=== PATIENT | female | born 1950 | race Caucasian/White ===

== ENCOUNTER 2023-02-23 05:28 | Emergency (ER) | payer MEDICARE, BC ==
[~2023-02-23] VITALS: Ht 167.6 cm; Wt 108.9 kg
[2023-02-23 06:07] LABS: BASOPHILS % (AUTO) 0.3 % (0.0-2.0); EOSINOPHILS # (AUTO) 0.3 K/uL (0.0-0.7); EOSINOPHILS % (AUTO) 3.7 % (0.0-6.0); HEMATOCRIT 41 % (33-45); HEMOGLOBIN 13.5 g/dL (11.5-14.8); LYMPHOCYTES # (AUTO) 1.8 K/uL (0.8-4.8); LYMPHOCYTES % (AUTO) 24.8 % (20.0-44.0); MEAN CORPUSCULAR HEMOGLOBIN 31 PG (26.0-33.0); MEAN CORPUSCULAR HGB CONC 33 g/dl (31.0-36.0); MEAN CORPUSCULAR VOLUME 92 fL (82-100); MONOCYTES # (AUTO) 0.5 K/uL (0.1-1.30); NEUTROPHILS # (AUTO) 4.7 K/uL (1.8-8.9); NEUTROPHILS % (AUTO) 64.2 % (43.0-81.0); PLATELET COUNT (AUTO) 236 K/uL (150-450); RED CELL DISTRIBUTION WIDTH 12.9 % (11.5-15.0); WHITE BLOOD COUNT (AUTO) 7.3 K/uL (4.3-11.0)
[2023-02-23 06:37] LABS: ALANINE AMINOTRANSFERASE 19 U/L (12-78); ALBUMIN 3.7 g/dL (3.4-5.0); ALKALINE PHOSPHATASE 112 U/L (46-116); ASPARTATE AMINOTRANSFERASE 17 U/L (15-37); BILIRUBIN,DIRECT 0.2 mg/dL (0.0-0.2); BILIRUBIN,TOTAL 0.4 mg/dL (0.2-1.0); CALCIUM, SERUM 9.8 mg/dL (8.5-10.1); CARBON DIOXIDE 27 mmol/L (21-32); CHLORIDE 106 mmol/L (98-107); CREATININE 0.9 mg/dL (0.6-1.3); GLUCOSE 110 mg/dL (74-106); POTASSIUM 4.2 mmol/L (3.5-5.1); SODIUM SERUM 141 mmol/L (136-145); UREA NITROGEN, BLOOD 15 mg/dL (7-18)
[2023-02-23] MEDS ORDERED: MECLIZINE HCL 25 MG TABLET ONE (08:58)
[2023-02-23] MEDS: MECLIZINE HCL 12.5 MG TABLET PO ONE (09:04)
[2023-02-23] MEDS ORDERED: MECL-159 PO (12:05)
[2023-02-23 12:13] VITALS: BP 134/72; TEMP 98; O2SAT 100
== END 2023-02-23 12:14 | disposition home or self-care (01) ==
LOC: ER 05:34
DX: R42 Dizziness and giddiness (principal)
CPT/HCPCS: 99285; 70450; 71045; 93005; 85025; 80048; 80076; 36415; 84484; J8597

== ENCOUNTER 2023-10-19 15:20 | Emergency (ER) | payer MEDICARE, BC ==
[~2023-10-19] VITALS: Ht 167.6 cm; Wt 113.4 kg
[~2023-10-19 15:20] MED LIST: MECL-159 PO
[2023-10-19] MEDS ORDERED: CEFTRIAXONE 1GM BAG (ER ONLY) 50 ML IV ONE (16:08)
[2023-10-19] MEDS ORDERED: KETOROLAC TROMETHAMINE 15 MG/ML VIAL ONE (16:08)
[2023-10-19] MEDS ORDERED: ACETAMINOPHEN ES 500 MG TABLET ONE (16:09)
[2023-10-19] MEDS: KETOROLAC TROMETHAMINE 15 MG/ML VIAL IV ONE (16:20)
[2023-10-19] MEDS: CEFTRIAXONE 1GM BAG (ER ONLY) 50 ML IV ONE (16:20)
[2023-10-19] MEDS: IV NS 0.9% 1,000 ML BAG IV ONE (16:20)
[2023-10-19] MEDS: ACETAMINOPHEN ES 500 MG TABLET PO ONE (16:21)
[2023-10-19] MEDS ORDERED: ONDA4TAB5 PO (17:39)
[2023-10-19] MEDS ORDERED: HYDR-4303 PO (17:39)
[2023-10-19] MEDS ORDERED: CEFD300C3 PO (17:39)
[2023-10-19] MEDS ORDERED: IBUP-1955 PO (17:39)
[2023-10-19 18:05] VITALS: BP 164/87; TEMP 208.8; O2SAT 99
== END 2023-10-19 18:05 | disposition home or self-care (01) ==
LOC: ER 15:28
DX: N39.0 Urinary tract infection, site not specified (principal); R10.9 Unspecified abdominal pain
CPT/HCPCS: 99284; 96365; 96375; J7030; J0696; J1885